=== PATIENT | male | born 1980 | race Two or more races ===

== ENCOUNTER 2025-03-04 09:19 | Emergency (ER) | payer MEDICAID, SELFPAY ==
[2025-03-04 09:29] VITALS: BP 167/77; PULSE 69; RESP 18; TEMP 36.8; O2SAT 98
[2025-03-04 11:30] LABS: HIV (1&2) Antibody Rapid Non-Reactive
--- NOTE | 2025-03-04 11:34 | PD.EDADULT ---
ED General RME/HPI General Chief complaint: General Adult/Misc Complain Stated complaint: WANTS TO BE TESTED FOR HIV Time Seen by Provider: 03/04/25 09:24 Arrival date/time: 03/04/25 09:19 45-year-old male presents to the emergency department today stating that on dialysis he switched dialysis companies and reports that he needs a HIV test. Patient reports he has no symptoms of HIV does not believe he has HIV but needs a test prior to getting dialysis Limitations: no limitations Related Data Home Medications ?Medication ?Instructions ?Recorded ?Confirmed tramadol 50 mg tablet 50 mg PO Q8H PRN Pain 06/02/23 02/19/24 Previous Rx's ?Medication ?Instructions ?Recorded patiromer calcium sorbitex 8.4 8.4 g PO QDAY #30 ea 07/11/23 gram oral powder packet (Veltassa) levothyroxine 25 mcg tablet 50 mcg (2 x 25 mcg) PO ACBR #30 10/13/23 tabs calcium acetate(phosphat bind) 667 667 mg PO TID 7 days #0 caps 11/14/23 mg capsule atorvastatin 80 mg tablet 80 mg PO QPM 30 days #30 tabs 12/13/23 insulin glargine-yfgn 100 unit/mL 10 unit (0.1 mL) subcut AC #15 mL 12/13/23 (3 mL) subcutaneous pen carvedilol 12.5 mg tablet 12.5 mg PO BIDWM #60 tabs 02/21/24 nifedipine 30 mg tablet,extended 30 mg PO BID #60 tabs 02/21/24 release 24 hr Allergies Allergy/AdvReac Type Severity Reaction Status Date / Time No Known Allergies Allergy Verified 03/04/25 10:05 Review of Systems Review of Systems Systems Reviewed: All systems reviewed, normal except as documented Constitutional Constitutional: Reports system reviewed and no additional complaints, except as documented, Denies fever(s) and Denies headache(s) Eyes Eyes: Reports system reviewed and no additional complaints, except as documented and Denies blurry vision ENT Ears, Nose, Mouth, and Throat: Reports system reviewed and no additional complaints, except as documented, Denies headache(s), Denies nasal congestion and Denies nasal discharge Cardiovascular Cardiovascular: Reports system reviewed and no additional complaints, except as documented, Denies chest pain and Denies dyspnea Respiratory Respiratory: Reports system reviewed and no additional complaints, except as documented, Denies chest congestion, Denies cough and Denies dyspnea Gastrointestinal Gastrointestinal: Reports system reviewed and no additional complaints, except as documented and Denies abdominal pain Integumentary/Breasts Skin/Breast: Reports system reviewed and no additional complaints, except as documented and Denies rash Neurologic Neurologic: Reports system reviewed and no additional complaints, except as documented, Reports as per HPI and Denies headache(s) Past Medical History Past Medical History NEUROLOGIC: Negative Neurological Disorders, Cerebrovascular Accident, Transient Ischemic Attacks (TIA), Dementia, Alzheimer's Disease, Brain Tumor, Meningitis, Seizures, Epilepsy, Multiple Sclerosis, Cerebral Palsy, Amyotrophic Lateral Sclerosis (ALS/Ginger Gehrig's), Guillain-Verplanck Syndrome, Spina Bifida, Paralysis, Augustine's Palsy, Subdural Hematoma, Migraine, Head Trauma, Spinal Cord Injury or Traumatic Brain Injury CARDIAC: Positive Cardiac Disorders, Hypercholesterolemia and Hypertension; Negative Myocardial Infarction, Cardiac Arrhythmia, Atrial Fibrillation, Angina, Heart Murmur, Coronary Artery Disease, Atherosclerotic Heart Disease, Peripheral Vascular Disease, Aneurysm, Congestive Heart Failure, Congenital Heart Disease, Valvular Heart Disease, Rheumatic Fever, Cardiomyopathy, Edema, Pericarditis, Cellulitis, Deep Vein Thrombosis, Hypotension or Varicose Veins RESPIRATORY: Positive Pneumonia; Negative Chronic Obstructive Pulmonary Disease (COPD), Asthma, Bronchitis, Emphysema, Pulmonary Fibrosis, Cystic Fibrosis, Tuberculosis, Pulmonary Embolism, Pulmonary Edema or Sleep Apnea GASTROINTESTINAL: Negative Gastrointestinal Disorders, Hepatitis, Cirrhosis, Celiac Disease, Whitt's Esophagus, Colitis, Colorectal Cancer or Crohn's Disease GENITOURINARY: Positive Genitourinary Disorders, Renal Disease and Dialysis; Negative Kidney Stones, Polycystic Kidney Disease, Neurogenic Bladder, Inguinal Hernia, Prostate Cancer or Benign Prostatic Hyperplasia REPRODUCTIVE: Negative Testicular Cancer MUSCULOSKELETAL: Positive Musculoskeletal Disorders; Negative Muscular Dystrophy, Myasthenia Gravis, Marfan's Syndrome, Bone Cancer, Arthritis, Rheumatoid Arthritis, Osteoporosis, Degenerative Disk Disease, Gout, Scoliosis, Carpal Tunnel Syndrome, Fibromyalgia, Fractures, Degenerative Joint Disease, Osteomyelitis or Poliovirus ENT: Positive Blind; Negative Cataracts, Glaucoma, Retinal Detachment, Macular Degeneration, Ear Infection, Deafness, Head Trauma or Eye Prosthesis ENDOCRINE: Positive Endocrine Disorders, Diabetes Mellitus Type 2 and Hypothyroidism; Negative Diabetes Mellitus Type 1, Hypoglycemia, Cincinnati's Syndrome, Elie's Disease, Hyperthyroidism, Parathyroid Disease, Pituitary Disease, Systemic Lupus Erythematosus, Syndrome of Inappropriate Antidiuretic Hormone (SIADH), Adrenal Disease or Graves' Disease HEMATOLOGIC: Positive Blood Disorders and Anemia; Negative Leukemia, Hemophilia, Thalassemia, Sickle Cell Disease or Clotting Problems PSYCHO/SOCIAL: Positive Anxiety; Negative Psychiatric Problems, Schizophrenia, Recreational Drug Use, Bipolar Disorder, Depression, Behavior Problems, Self-Mutilation, Attention Deficit Disorder, Attention Deficit Hyperactivity Disorder, Depression, Post Traumatic Stress Disorder or Eating Disorder OTHER HISTORY: Positive Hospitalization; Negative Autoimmune Disease, Down Syndrome, Autism, Developmental Delay, Shingles, Falls, Blood Transfusions, Blood Transfusion Reaction, Anesthesia Reactions, Organ Transplant, Chemotherapy, Radiation Therapy, Hyperbaric Therapy, MRSA, VRSA, Vancomycin-Resistant Enterococci, Human Immunodeficiency Virus (HIV), Chicken Pox, Measles, Mumps, Rubella (Cymro Measles), Pertussis, Cancer, Colorectal Cancer, Lung Cancer, Prostate Cancer or Testicular Cancer Family History FAMILY HISTORY: Negative Family Psychiatric Problems, Family Respiratory Disorders, Family Cardiac Disorders, Family Gastrointestinal Problems, Family Cancer, Family Surgery or Family Anesthesia Reaction Surgical History SURGICAL: Negative Cardiac Surgery, Open Heart Surgery, Coronary Artery Bypass Graft, Valve Replacement, Vascular Surgery, Coronary Stent, Cardiac Catheterization, Pacemaker, Angiogram, Auto Implanted Cardiovert Defib, Carotid Endarterectomy, Endocrine Surgery, Thyroidectomy, Ear Surgery, Tympanostomy Tube, Eye Surgery, Nose Surgery, Oral Surgery, Tonsillectomy, Adenoidectomy, Cochlear Implant, Corneal Transplant, Throat Surgery, Abdominal Surgery, Tracheostomy, Gastric Bypass Surgery, Bowel Surgery, Nephrectomy, Transurethral Resection, Joint Replacement (Fractured 3rd finger of right hand- No surgery.), Amputation, Open Reduction Internal Fixation, Arthroscopy, Neurologic Surgery, Brain Shunt, Vasectomy or Organ Transplant Social History SMOKING STATUS: Never smoker SECOND HAND EXPOSURE: No SUBSTANCE USE: does not use OCCUPATION: unemployed ED Exam General Limitations: Present no limitations General appearance: Present alert and in no apparent distress Head Head exam: Present atraumatic Eye Eye exam: Present normal appearance, PERRL and EOMI ENT ENT exam: Present normal exam, normal oropharynx and mucous membranes moist Neck Neck exam: Present normal inspection, full ROM and trachea midline Chest Chest inspection: Present normal inspection and symmetric chest wall rise Respiratory Respiratory exam: Present normal lung sounds bilaterally Cardiovascular Cardiovascular exam: Present regular rate, normal rhythm and normal heart sounds Abdominal Exam Abdominal exam: Present soft and normal bowel sounds Extremities Exam Extremities exam: Present normal inspection and full ROM Back Exam Back exam: Present normal inspection and full ROM Neurological Exam Neurological exam: Present alert, oriented X3 and CN II-XII intact Psychiatric Psychiatric exam: Present normal affect and normal mood Skin Skin exam: Present warm, dry, intact and normal color Course Quality Measures none Orders Category Date Time Status HIV (1&2) Antibody Rapid Stat Lab 03/04/25 09:40 Completed Vital Signs Vital signs: Vital Signs Temperature 98.2 F 03/04/25 09:29 Pulse Rate 69 03/04/25 09:29 Respiratory Rate 18 03/04/25 09:29 Blood Pressure 167/77 H 03/04/25 09:29 Pulse Oximetry (%) 98 03/04/25 09:29 Oxygen Delivery Method Room Air 03/04/25 09:29 O2 saturation 98% r.a wnl Discharge Plan Plan Patient Disposition: HOME (Self Care) Discharge Disposition comment: Stable Prescriptions/Referrals Prescriptions/Med Rec: No Action tramadol 50 mg Tablet 50 mg PO Q8H PRN (Reason: Pain) calcium acetate(phosphat bind) 667 mg Capsule 667 mg PO TID 7 Days Qty: 0 0RF nifedipine 30 mg Tablet Extended Release 24hr 30 mg PO BID Qty: 60 0RF carvedilol 12.5 mg Tablet 12.5 mg PO BIDWM Qty: 60 0RF Veltassa 8.4 gram Powder In Packet 8.4 g PO QDAY Qty: 30 0RF levothyroxine 25 mcg Tablet 50 mcg PO ACBR Qty: 30 0RF atorvastatin 80 mg tablet 80 mg PO QPM 30 Days Qty: 30 0RF insulin glargine-yfgn 100 unit/mL (3 mL) insulin pen 10 unit SUBCUT AC Qty: 15 0RF Patient Comments: INJECT 10 UNITS SUBCUTANEOUSLY EVERY DAY AT BEDTIME Referrals: No Primary/Family,Physician [Primary Care Provider] - In 1 week Problem List Clinical Impression: Encounter for HIV (human immunodeficiency virus) test Patient/Caregiver Discharge Instructions Additional Instructions: Please follow up with your primary care doctor in the next 24-48hrs for any worsening symptoms return here immediately Today you tested negative for HIV Print Language: Kenyan Stand Alone Forms: Danyelle Award Info., Patient Portal Info Letter PA/GARAGE HELPER Supervising Physician PA/GARAGE HELPER Supervising Physician: Dr. Henry MDM Narrative MDM hospital course: 45-year-old male presents to the emergency department today stating that on dialysis he switched dialysis companies and reports that he needs a HIV test. Patient reports he has no symptoms of HIV does not believe he has HIV but needs a test prior to getting dialysis On exam patient appears chronically ill does not appear toxic. Patient checked for HIV came back negative Patient discharged home in no distress to follow-up with primary care doctor in the next 24 to 48 hours and for any worsening symptoms to return to the ER immediately Clinical Information Provided by patient Medical Records Reviewed [facility] Meds/Rx Considered, not Ordered None Labs/Rad/Tests considered, not Ordered Describe details: Obtained Chronic Illness/Social Conditions which may negatively complicate care or outcome(s)-explain: None or not applicable EKG EKG not done Lab Interpretation Labs: see narrative above Lab(s) interpretation(s): Reviewed by me Imaging Imaging interpretation: none Medication Administration(s) none Diagnosis Differential diagnosis: ESRD on dialysis, abnormal labs, HIV Differential dx and/or dx ruled out: HIV testing Dispositon Disposition: Discharge Home
== END 2025-03-04 11:38 | disposition home or self-care (01) ==
PROVIDERS: Emergency Provider Nurse Practitioner Primary Care
DX: Z11.4 Encounter for screening for human immunodeficiency virus [HIV] (principal)
CPT/HCPCS: 36415; 86703; 99283

== ENCOUNTER 2025-03-11 15:39 | Emergency (ER) | payer MEDICAID, SELFPAY ==
[2025-03-11 15:56] VITALS: BP 185/88; PULSE 74; RESP 16; TEMP 36.8; O2SAT 98; BMI 21.9
--- NOTE | 2025-03-11 16:24 | EKG_ITS ---
[facility] Test Date: 2025-03-11 Pat Name: EBER CULP Department: Room: - Gender: Male Professor Of Physics: : 1980 Requested By: Rafael Brewster (HUMAN RESOURCES COMPLIANCE MANAGER) Order Number: [id number] Reading MD: Rafael Brewster (HUMAN RESOURCES COMPLIANCE MANAGER) Measurements Intervals [place] Rate: 70 P: 64 MD: 160 QRS: -24 QRSD: 105 T: 91 QT: 443 QTc: 480 Interpretive Statements SINUS RHYTHM POSSIBLE LEFT ATRIAL ENLARGEMENT [-0.1mV P-WAVE IN V1/V2] BORDERLINE LEFT AXIS DEVIATION [QRS AXIS < -20] POSSIBLE RIGHT VENTRICULAR CONDUCTION DELAY [RSR (QR) IN V1/V2] POSSIBLE LEFT VENTRICULAR HYPERTROPHY [VOLTAGE CRITERIA PLUS LAE OR QRS WIDENING] ST DEVIATION AND MODERATE T-WAVE ABNORMALITY, CONSIDER LATERAL ISCHEMIA [-0.1+ mV T-WAVE IN I/aVL/V5/V6] No previous ECG available for comparison /store/S0/[id number]/[id number].pdf
--- NOTE | 2025-03-11 16:24 | XR_ITS ---
Examination: PA and lateral chest 2 views TECHNIQUE: Upright PA lateral chest 2 views Date and time: March 11, 2025 1700 hours Comparison February 19, 2024 INDICATIONS: Chest pain today. FINDINGS: Mild CHF Ordered enlargement cardiac contour, prominent vascular congestion with perihilar basilar edema and small left pleural effusion IMPRESSION: Mild CHF
--- NOTE | 2025-03-11 16:25 | PD.EDRME ---
Rapid Medical Screening Exam E Arrival date/time: 03/11/25 15:39 45-year-old male ESRD on dialysis presents the Emergency Department for complaint of shortness of breath Chief Complaint: Shortness of Breath/Dyspnea Vital signs: Vital Signs Temperature 98.3 F 03/11/25 15:56 Pulse Rate 74 03/11/25 15:56 Respiratory Rate 16 03/11/25 15:56 Blood Pressure 185/88 H 03/11/25 15:56 Pulse Oximetry (%) 98 03/11/25 15:56 Oxygen Delivery Method Room Air 03/11/25 15:56
[2025-03-11 16:55] LABS: Basophils # (Auto) 0.1 Thou/mm3 (0.0-0.2); Basophils % (Auto) 2 % (0-2.5); Eosinophils # (Auto) 0.2 Thou/mm3 (0.0-0.5); Eosinophils % (Auto) 2 % (0-10); Hematocrit 32.2 % (41.0-53.0); Hemoglobin 10.8 g/dL (13.5-16.0); Immature Granulocytes Auto 0.02 Thou/mm3 (0.00-0.00); Lymphocytes # (Auto) 1.0 Thou/mm3 (1.0-4.8); Lymphocytes % (Auto) 15 % (10-50); Mean Corpuscular HGB Conc 33.5 g/dl (31.0-37.0); Mean Corpuscular Hemoglobin 31.7 pg (25.0-35.0); Mean Corpuscular Volume 94 fL (80-100); Monocytes # (Auto) 0.7 Thou/mm3 (0.0-0.8); Monocytes % (Auto) 10 % (0-12); Neutrophils # (Auto) 4.8 Thou/mm3 (1.8-7.7); Neutrophils % (Auto) 71 % (37-80); Nucleated Red Blood Cell # 0.00 Thou/mm3 (0.00-0.00); Nucleated Red Blood Cell % 0 /100 WBC (0); Platelet Count 127 Thou/mm3 (140-440); RDW Standard Deviation 51.1 fL (35.1-43.9); Red Blood Count 3.41 Miln/mm3 (4.50-5.90); White Blood Count 6.7 Thou/mm3 (3.8-10.6)
[2025-03-11 17:15] LABS: INR 1.2 (0.9-1.3); Partial Thromboplastin Time 29.9 Seconds (22.0-36.0); Prothrombin Time 12.5 Seconds (9.0-12.2)
[2025-03-11 17:20] LABS: Alanine Aminotransferase 13 U/L (10-49); Albumin, Serum 4.4 gm/dL (3.5-5.0); Albumin/Globulin Ratio 1.1 (1.2-2.2); Alkaline Phosphatase 422 U/L (46-116); Anion Gap 13 (7-16); Aspartate Amino Transferase 18 U/L (0-34); B-Type Natriuretic Peptide > 3280 pg/mL (0-100); BUN/Creatinine Ratio 5 Ratio (12-20); Bilirubin,Total 1.0 mg/dL (0.3-1.2); Blood Urea Nitrogen 33 mg/dL (9-23); Calcium 8.9 mg/dL (8.3-10.6); Calcium (Corrected) 8.9 mg/dL (8.5-10.1); Carbon Dioxide 27.8 mMol/L (20.0-31.0); Chloride 90 mMol/L (98-107); Creatinine (Component) 6.6 mg/dL (0.6-1.3); Estimated Creatinine Clearance 11.5 mL/min (>60); Globulin 4.0 gm/dL (2.3-3.5); Glucose 383 mg/dL (74-106); Magnesium 2.6 mg/dL (1.6-2.6); Osmolality,Calculated 285 (275-295); Potassium 5.9 mMol/L (3.4-5.1); Sodium 131 mMol/L (136-145); Total Protein 8.4 gm/dL (5.7-8.2); Troponin I 0.028 ng/mL (0.0-0.045); eGFR 10 See Note
--- NOTE | 2025-03-11 22:34 | PD.EDSOB ---
ED SOB =RME/HPI General Chief Complaint: Shortness of Breath/Dyspnea Stated Complaint: pt. states leaking in left lung Time Seen by Provider: 03/11/25 20:47 Arrival date/time: 03/11/25 15:39 RME / HPI RME / HPI Narrative: 03/11/25 15:39 45-year-old male ESRD on dialysis presents the Emergency Department for complaint of shortness of breath DR. VALERO MAIN ED EVALUATION: 45 y/o male with Hx of ESRD and and Dialysis presents to ED c/o shortness of breath. While at dialysis, patient was told by the provider that he may have fluid in his lungs. Here for evaluation of fluid in lungs. Patient also reports constipation for which he takes a stool with some relief. Patient produces little to no urine. Related Data Home Medications ?Medication ?Instructions ?Recorded ?Confirmed tramadol 50 mg tablet 50 mg PO Q8H PRN Pain 06/02/23 02/19/24 Previous Rx's ?Medication ?Instructions ?Recorded patiromer calcium sorbitex 8.4 8.4 g PO QDAY #30 ea 07/11/23 gram oral powder packet (Veltassa) levothyroxine 25 mcg tablet 50 mcg (2 x 25 mcg) PO ACBR #30 10/13/23 tabs calcium acetate(phosphat bind) 667 667 mg PO TID 7 days #0 caps 11/14/23 mg capsule atorvastatin 80 mg tablet 80 mg PO QPM 30 days #30 tabs 12/13/23 insulin glargine-yfgn 100 unit/mL 10 unit (0.1 mL) subcut AC #15 mL 12/13/23 (3 mL) subcutaneous pen carvedilol 12.5 mg tablet 12.5 mg PO BIDWM #60 tabs 02/21/24 nifedipine 30 mg tablet,extended 30 mg PO BID #60 tabs 02/21/24 release 24 hr Allergies Allergy/AdvReac Type Severity Reaction Status Date / Time No Known Allergies Allergy Verified 03/11/25 15:44 Review of Systems Review of Systems Systems Reviewed: All systems reviewed, normal except as documented Past Medical History Past Medical History CARDIAC: Positive Cardiac Disorders, Hypercholesterolemia and Hypertension RESPIRATORY: Positive Pneumonia GENITOURINARY: Positive Genitourinary Disorders, Renal Disease and Dialysis MUSCULOSKELETAL: Positive Musculoskeletal Disorders ENT: Positive Blind ENDOCRINE: Positive Endocrine Disorders, Diabetes Mellitus Type 2 and Hypothyroidism HEMATOLOGIC: Positive Blood Disorders and Anemia PSYCHO/SOCIAL: Positive Anxiety OTHER HISTORY: Positive Hospitalization ED Exam Narrative Physical exam: GENERAL APPEARANCE: alert and oriented x 4, well-developed, well-nourished, no acute distress VITALS: All vitals were reviewed and the pulse ox is 97% on room air, which is normal according to my interpretation. HEENT: Normocephalic, atraumatic; pupils equal, round, reactive to light; EOMI; mucous membranes pink, moist; oropharynx clear NECK: Supple LUNGS: CTABL; no wheezes, no rales, no rhonchi HEART: Regular rate, regular rhythm; normal S1, S2; no murmurs ABDOMEN: non distended; normal BS; soft, no tenderness, no guarding, no rebound; no masses, no organomegaly, no hernia BACK: no CVA tenderness EXTREMITIES: atraumatic; no edema NEUROLOGIC: awake; alert and oriented x4; cranial nerves II-XII grossly intact; no focal sensory or motor deficits PSYCHIATRIC: appropriate mood and affect SKIN: warm, dry, normal color; no rashes Course Course Course Narrative: CXR is ordered for determining the etiology of shortness of breath. Quality Measures none Orders Category Date Time Status EKG (ED ONLY) *Do not use* NOW Care 03/11/25 16:24 Completed EKG (ED Only) Stat Exams 03/11/25 16:24 Draft XR chest 2V Stat Exams 03/11/25 16:24 Completed B-Type Natriuretic Peptide Stat Lab 03/11/25 16:37 Completed CBC Stat Lab 03/11/25 16:37 Completed Comprehensive Metabolic Panel Stat Lab 03/11/25 16:37 Completed Magnesium Stat Lab 03/11/25 16:37 Completed Partial Thromboplastin Time Stat Lab 03/11/25 16:37 Completed Prothrombin Time with INR Stat Lab 03/11/25 16:37 Completed Troponin I Stat Lab 03/11/25 16:37 Completed Sod Polystyrene Sulfon Susp [Kayexalate Susp] Med 03/11/25 22:34 Discontinued 30 gm PO X1 ONE Vital Signs Vital signs: Vital Signs Temperature 98.3 F 03/11/25 15:56 Pulse Rate 74 03/11/25 15:56 Respiratory Rate 16 03/11/25 15:56 Blood Pressure 185/88 H 03/11/25 15:56 Pulse Oximetry (%) 98 03/11/25 15:56 Oxygen Delivery Method Room Air 03/11/25 15:56 Shortness of Breath / Dyspnea MDM Narrative MDM Narrative:: Scribe Attestation: I, Tootie Mahoney, am scribing for and in the presence of Dr. Valero. Provider Notation: Although this document has been carefully reviewed, there may still be some phonetic and other typographical errors.? These errors are purely grammatical due to imperfections in the software program and should not be construed in any way to? compromise the substance of the patient's medical care during this visit. Patient data External records reviewed:: [facility] previous records (Reviewed prior ED records from 03/04/25. Patient was seen for Encounter for HIV (human immunodeficiency virus) test.) Clinical information provided by:: patient Social determinants that could affect healthcare access:: none Patient has the following chronic illnesses:: Hypercholesterolemia, Hypertension, Renal Disease, Dialysis, Blind, Diabetes Mellitus Type 2, Hypothyroidism, Anemia, Anxiety How is presenting disease/condition affected by chronic disease/condition?: exacerbated by Evaluation data The following diagnostics were reviewed and interpreted by me:: lab results, radiology exam(s) and EKG tracing(s) (EKG manual reading, my interpretation: sinus rhythm, rate: 70 bpm, sinus right BBB, T wave inversions in V1, V2, lead III, S depression in lead II, V6, no reciprocal elevations) Lab and/or radiology exams considered but not ordered:: None Interpretation Summary: RADIOLOGY Chest X-Ray: FINDINGS: Mild CHF Ordered enlargement cardiac contour, prominent vascular congestion with perihilar basilar edema and small left pleural effusion IMPRESSION: Mild CHF Medications / Prescriptions Medications or Prescriptions considered but not ordered:: None Medication administrations:: Medication Administration History Discontinued Medications Sodium Polystyrene Sulfonate (Sod Polystyrene Sulfon Susp 15 Gm/60 Ml Btl) 30 gm PO X1 ONE Stop: 03/11/25 22:35 Last Admin: 03/11/25 22:46 Dose: 30 gm Documented By: GM See above Consultations Consultation(s) initiated? (list below): No Diagnosis Shortness of Breath Differential Diagnosis: congestive heart failure, community acquired pneumonia and pulmonary embolism Most likely diagnosis given after review of the tests above:: Dyspnea, Hyperkalemia Admission Indicated Admission indicated?: not indicated Explain why admission is indicated or not indicated:: Patient does not meet admission criteria. Admission Request Was there a request for admission?: No Disposition Plan Disposition Plan: Discharge Discharge Attestation Discharge Attestation: The patient and all family members were given an opportunity to ask questions and understood the discharge instructions. Discharge instructions specifically effects, indications for sooner follow up or return to the emergency department, and the expected course of current diagnosis. Patient condition: Stable Discharge Plan Plan Patient Disposition: HOME (Self Care) Prescriptions/Referrals Prescriptions/Med Rec: No Action tramadol 50 mg Tablet 50 mg PO Q8H PRN (Reason: Pain) calcium acetate(phosphat bind) 667 mg Capsule 667 mg PO TID 7 Days Qty: 0 0RF nifedipine 30 mg Tablet Extended Release 24hr 30 mg PO BID Qty: 60 0RF carvedilol 12.5 mg Tablet 12.5 mg PO BIDWM Qty: 60 0RF Veltassa 8.4 gram Powder In Packet 8.4 g PO QDAY Qty: 30 0RF levothyroxine 25 mcg Tablet 50 mcg PO ACBR Qty: 30 0RF atorvastatin 80 mg tablet 80 mg PO QPM 30 Days Qty: 30 0RF insulin glargine-yfgn 100 unit/mL (3 mL) insulin pen 10 unit SUBCUT AC Qty: 15 0RF Patient Comments: INJECT 10 UNITS SUBCUTANEOUSLY EVERY DAY AT BEDTIME Referrals: No Primary/Family,Physician [Primary Care Provider] - In 1 week Problem List Clinical Impression: Dyspnea, Hyperkalemia Patient/Caregiver Discharge Instructions Education Materials: ED Hyperkalemia Additional Instructions: Follow up for dialysis tomorrow as scheduled Print Language: Sinhala Stand Alone Forms: Danyelle Award Info., Patient Portal Info Letter
[2025-03-11 22:35] VITALS: BP 193/90; PULSE 75; RESP 16; TEMP 36.6; O2SAT 97
[2025-03-11] MEDS: SOD POLYSTYRENE SULFON SUSP 15 GM/60 ML BTL 30 GM PO (22:46)
== END 2025-03-11 22:51 | disposition home or self-care (01) ==
PROVIDERS: Nurse Practitioner Primary Care; Emergency Provider Emergency Medicine
DX: R06.00 Dyspnea, unspecified (principal); E87.5 Hyperkalemia; R94.31 Abnormal electrocardiogram [ECG] [EKG]; I50.9 Heart failure, unspecified
CPT/HCPCS: 36415; 71046; 80053; 83735; 83880; 84484; 85025; 85610; 85730; 93005; 99283; A9270